=== PATIENT | male | born 1995 | race Caucasian/White ===

== ENCOUNTER 2022-01-27 19:36 | Emergency (ER) | payer SELFPAY ==
[2022-01-27 19:59] VITALS: BP 110/62; PULSE 66; RESP 18; TEMP 36.6; O2SAT 100
--- NOTE | 2022-01-27 20:15 | ED.GENADULT ---
HPI - General Adult General Chief complaint: Abdominal Pain Stated complaint: abdominal pain Time Seen by Provider: 01/27/22 19:55 Source: patient, RN notes reviewed and old records reviewed Mode of arrival: ambulatory Limitations: no limitations History of Present Illness HPI narrative: 26-year-old male who presents to [facility] with complaints of abdominal pain intermittent generalized for the past week. He states that he has had nausea and vomiting for the past 2 days, no bilious emesis or any blood noted. Patient reports that pain has seemed to settle more on his left abdomen and he has had several diarrhea stools the past few days with last stool prior to arrival. Patient states that he has been taking Pepto Bismol which seems to help a little. Patient denies any changes in his dietary intake. He reports exposure to COVID at work. MD complaint: nausea vomiting diarrhea abdominal pain Onset (ago): week(s) (1 week with increased symptoms past 3 days) Location: abdomen Severity scale (1-10): 5 Pain Consistency: colicky Treatments prior to arrival: other (pepto Bismol) Related Data Allergies Allergy/AdvReac Type Severity Reaction Status Date / Time No Known Allergies Allergy Verified 01/27/22 20:10 Review of Systems Review of Systems: CONSTITUTIONAL: Denies fever, chills, or sweats. EYES: Denies visual changes, redness, or discharge. ENT: Denies rhinorrhea, congestion, sore throat, or otalgia. CARDIOVASCULAR: Denies chest pain, palpitations, or edema. RESPIRATORY: Denies cough or dyspnea. GASTROINTESTINAL: Positive for generalized abdominal pain with nausea, vomiting, or diarrhea. GENITOURINARY: Denies dysuria or hematuria. SKIN: Denies rash or itching. MUSCULOSKELETAL: Denies back pain, joint pain, or myalgia. NEUROLOGIC: Denies headache, numbness, or weakness. PSYCHIATRIC: Denies anxiety or depression. All systems reviewed & are unremarkable except as noted in HPI and below PMFSH Past Medical History Medical History (Updated 01/31/22 @ 21:07 by Gladys Oquendo NP) No significant past medical history Surgical History Surgical History (Updated 01/31/22 @ 21:07 by Gladys Oquendo NP) No history of previous surgery Social History Social History (Updated 01/31/22 @ 21:07 by Gladys Oquendo NP) Smoking status: Never smoker Alcohol intake: unknown Substance use type: does not use Living arrangements: with family Gender identity (if verbalized by the patient): Male Comments At time of signature, agree with nursing past medical, surgical, social and family history. There is no relevant family history pertinent to the presenting complaint Exam Narrative: GENERAL: Well-appearing, well-nourished, and in no acute distress. HEAD: Normocephalic, atraumatic. EYES: PERRLA and EOMI. ENT: Nares clear, no rhinorrhea or epistaxis. Mucous membranes moist.TM's normal with good light reflex, throat pink with no lesions or exudates, NECK: Supple. no lymphadenopathy CHEST: Clear to auscultation. No respiratory distress. HEART: Regular rate and rhythm. No murmur heard. Normal peripheral pulses. ABDOMEN: Soft,tender mainly left lower abdomen, no McBurney point tenderness, no rigidity, nondistended, hyper active bowel sounds. EXTREMITIES: Normal range of motion. No edema. SKIN: Warm, dry, no rash. NEURO: No focal deficits. Alert and oriented x3. Course Course Level of Care: Express Care Visit Vital Signs Vital signs: Vital Signs Temperature 36.6 C 01/27/22 19:59 Pulse Rate 66 01/27/22 19:59 Respiratory Rate 18 01/27/22 19:59 Blood Pressure 110/62 01/27/22 19:59 Pulse Oximetry 100 01/27/22 19:59 Oxygen Delivery Room Air 01/27/22 19:59 Temperature 36.6 C 01/27/22 19:59 Pulse Rate 66 01/27/22 19:59 Respiratory Rate 18 01/27/22 19:59 Blood Pressure 110/62 01/27/22 19:59 Pulse Oximetry 100 01/27/22 19:59 Oxygen Delivery Room Air 01/27/22 19:59 Medical Decis
--- NOTE | 2022-01-27 20:36 | ED_ITS ---
HPI - General Adult General Chief complaint: Abdominal Pain Stated complaint: abdominal pain Time Seen by Provider: 01/27/22 19:55 Source: patient, RN notes reviewed and old records reviewed Mode of arrival: ambulatory Limitations: no limitations Related Data Allergies Allergy/AdvReac Type Severity Reaction Status Date / Time No Known Allergies Allergy Verified 01/27/22 20:10 Course Vital Signs Vital signs: Vital Signs Temperature 36.6 C 01/27/22 19:59 Pulse Rate 66 01/27/22 19:59 Respiratory Rate 18 01/27/22 19:59 Blood Pressure 110/62 01/27/22 19:59 Pulse Oximetry 100 01/27/22 19:59 Oxygen Delivery Room Air 01/27/22 19:59 Temperature 36.6 C 01/27/22 19:59 Pulse Rate 66 01/27/22 19:59 Respiratory Rate 18 01/27/22 19:59 Blood Pressure 110/62 01/27/22 19:59 Pulse Oximetry 100 01/27/22 19:59 Oxygen Delivery Room Air 01/27/22 19:59 Medical Decision Making Vital Signs Vital Signs: Vital Signs Temperature 36.6 C 01/27/22 19:59 Pulse Rate 66 01/27/22 19:59 Respiratory Rate 18 01/27/22 19:59 Blood Pressure 110/62 01/27/22 19:59 Pulse Oximetry 100 01/27/22 19:59 Oxygen Delivery Room Air 01/27/22 19:59 Temperature 36.6 C 01/27/22 19:59 Pulse Rate 66 01/27/22 19:59 Respiratory Rate 18 01/27/22 19:59 Blood Pressure 110/62 01/27/22 19:59 Pulse Oximetry 100 01/27/22 19:59 Oxygen Delivery Room Air 01/27/22 19:59 Lab Data Labs: Lab Results 01/27/22 Range/Units 20:07 POC SARS CoV-2 Ag Negative (Negative) Discharge Plan Discharge Clinical Impression: Gastroenteritis Patient Disposition: Home, Self-Care Condition: Stable Instructions: Clear Liquid Diet (ED), Gastroenteritis (ED) Additional Instructions: Clear liquids for the next 8-10 hours, then advance to a bland diet as tolerated A bland diet can consist of--BRAT diet which is bananas, rice, applesauce, and toast Avoid fried, greasy, fatty, fried foods Avoid caffeine, nicotine, and alcohol Return to your regular diet in the next 3-4 days Medication as directed for nausea and vomiting Zofran for nausea and vomiting Bentyl for abdominal pain cramping Sometimes ibuprofen/Aleve can cause increased stomach upset [id number] Imodium if develop diarrhea Follow-up with her PCP if continued problems or uncontrolled pain If your symptoms persist, change or worsen significantly before you can contact your personal physician then please, without delay, go to the emergency department for further evaluation. Follow-up with PCP in 7-10 days or sooner if needed Prescriptions: New dicyclomine 10 mg capsule 10 mg PO TID Qty: 20 0RF ondansetron 4 mg tablet,disintegrating 4 mg PO Q6H PRN (Reason: nausea and vomiting) Qty: 14 0RF Follow-up/Referrals: PHYSICIAN,PSYCHOLOGY INSTRUCTOR [Primary Care Provider] - Time of Disposition: 20:31
== END 2022-01-27 20:42 | disposition home or self-care (01) ==
PROVIDERS: Emergency Provider Registered Nurse
DX: K52.9 Noninfective gastroenteritis and colitis, unspecified (principal); Z20.822 Contact with and (suspected) exposure to COVID-19
CPT/HCPCS: 87426; 99203; C9803; G0463